=== PATIENT | female | born 1995 | race Caucasian/White ===

== ENCOUNTER → 2020-12-24 | Outpatient (REF) | payer OTHER ==
[2020-12-25 03:42] LABS: RSV AMPLIFICATION NEGATIVE (NEGATIVE)
== END ==
LOC: M LAB REF 17:00
PROVIDERS: ATTEND Specialist
DX: Z03.818 Encounter for observation for suspected exposure to other biological agents ruled out (principal)

== ENCOUNTER → 2021-01-20 | Outpatient (REF) | payer OTHER ==
[2021-01-20 10:48] LABS: RSV AMPLIFICATION NEGATIVE (NEGATIVE)
== END ==
LOC: M LAB REF 09:27
PROVIDERS: ATTEND Pediatrics
DX: J06.9 Acute upper respiratory infection, unspecified (principal)

== ENCOUNTER → 2021-01-27 | Outpatient (REF) | payer OTHER ==
[2021-01-27 13:30] LABS: APPEARANCE, URINE MANUAL CLOUDY (CLEAR)
[2021-01-27 13:31] LABS: BILIRUBIN, URINE MANUAL NEGATIVE (NEGATIVE); COLOR, URINE MANUAL RED (YELLOW); GLUCOSE, URINE (UA) MANUAL NEGATIVE (NEGATIVE); KETONE, URINE MANUAL NEGATIVE (NEGATIVE); NITRITE, URINE MANUAL NEGATIVE (NEGATIVE); UROBILINOGEN, URINE MANUAL NORMAL (NORMAL)
[2021-01-27 13:32] LABS: BLOOD URINE MANUAL POSITIVE (NEGATIVE); LEUKOCYTE ESTERASE, URINE MAN TRACE (NEGATIVE)
[2021-01-27 13:34] LABS: RBC, URINE TNTC /hpf (0-3)
[2021-01-27 13:35] LABS: BACTERIA, URINE M; HYALINE CAST, URINE NONE SEEN /lpf (0-1); SQUAMOUS EPITHELIAL CELL URINE MOD AMOUNT /hpf (SMALL AMT)
== END ==
LOC: M LAB REF 12:51
PROVIDERS: ATTEND Pediatrics
DX: N39.0 Urinary tract infection, site not specified (principal)

== ENCOUNTER → 2023-06-04 | Outpatient (REF) | payer OTHER, MEDICAID | LOC: M SFHCWAGY 09:41 | PROVIDERS: ATTEND Obstetrics & Gynecology | DX: Z53.9 Procedure and treatment not carried out, unspecified reason (principal) ==

== ENCOUNTER → 2023-07-06 | Outpatient (CLI) | payer OTHER | LOC: M WHC 09:32 | PROVIDERS: ATTEND Obstetrics & Gynecology | DX: Z34.92 Encounter for supervision of normal pregnancy, unspecified, second trimester (principal) ==

== ENCOUNTER 2023-08-18 20:22 | Outpatient (CLI) | payer MEDICAID ==
[~2023-08-18 20:22] MED LIST: AMOX500C PO; ASPI81CH48; CEPH500C PO; CYCL-707 PO; METO5TAB2; PRED20TA PO; PRENTAB40 PO; REGL10TA6 PO
[2023-08-18] MEDS ORDERED: HOME MED LIST COMPLETE! XX SCH (21:40)
[2023-08-18] MEDS: LR 1,000 ML IV ONE (21:45)
== END 2023-08-18 22:55 | disposition home or self-care (01) ==
LOC: M LDO 20:22
PROVIDERS: ATTEND Obstetrics & Gynecology
DX: O26.892 Other specified pregnancy related conditions, second trimester (principal); R25.2 Cramp and spasm; R10.2 Pelvic and perineal pain; Z3A.26 26 weeks gestation of pregnancy
CPT/HCPCS: 59025; 81001; 87088; G0463

== ENCOUNTER → 2023-09-06 | Outpatient (CLI) | payer OTHER ==
[2023-09-06 13:35] LABS: HEMATOCRIT 36.9 % (36.0-47.0); MEAN CORPUSCULAR HEMOGLOBIN 30.5 pg (27.0-33.0); MEAN CORPUSCULAR HGB CONC 32.5 g/dl (32.0-36.5); MEAN CORPUSCULAR VOLUME 93.7 fl (80.0-96.0); PLATELET COUNT, AUTOMATED 272 10^3/uL (150-450); RED BLOOD COUNT 3.94 10^6/uL (4.00-5.40); WHITE BLOOD COUNT 10.1 10^3/uL (4.0-10.0)
[2023-09-06 14:58] LABS: GC DNA AMPLIFICATION NEGATIVE (NEGATIVE)
== END ==
LOC: M PLALAB 09:58
PROVIDERS: ATTEND Advanced Practice Midwife
DX: Z34.92 Encounter for supervision of normal pregnancy, unspecified, second trimester (principal)

== ENCOUNTER → 2023-10-26 | Outpatient (REF) | payer OTHER ==
[~2023-10-26] MED LIST changes: +FIOR1CAP PO
== END ==
LOC: M SFHCWAGY 12:24
PROVIDERS: ATTEND Advanced Practice Midwife
DX: Z36.85 Encounter for antenatal screening for Streptococcus B (principal)

== ENCOUNTER 2023-10-27 22:27 | Outpatient (CLI) | payer OTHER ==
[~2023-10-27] VITALS: Ht 157.5 cm; Wt 73.9 kg
[~2023-10-27 22:27] MED LIST changes: -FIOR1CAP PO
[2023-10-27] MEDS: diphenhydrAMINE 25MG CAP PO ONE (23:25)
[2023-10-27] MEDS: METOCLOPRAMIDE 10MG TAB PO ONE (23:25)
[2023-10-27 23:38] LABS: TOTAL PROTEIN,RANDOM URINE 10.1 MG/DL (0.0-14.0)
[2023-10-27 23:43] LABS: CREATININE,RANDOM URINE 61.4 MG/DL
[2023-10-28 00:40] VITALS: BP 120/65
[2023-10-28] MEDS: FIORICET TAB PO ONE (00:41)
[2023-10-28] MEDS ORDERED: FIOR1CAP PO (02:55)
== END 2023-10-28 02:52 | disposition home or self-care (01) ==
LOC: M LDO 22:27
PROVIDERS: ATTEND Obstetrics & Gynecology
DX: O26.893 Other specified pregnancy related conditions, third trimester (principal); R51.9 Headache, unspecified; Z87.59 Personal history of other complications of pregnancy, childbirth and the puerperium; Z3A.36 36 weeks gestation of pregnancy
CPT/HCPCS: 59025; 82570; 84156; G0463

== ENCOUNTER 2023-11-18 20:17 | Inpatient (IN) | payer OTHER ==
[~2023-11-18] VITALS: Ht 157.5 cm; Wt 76.0 kg
[~2023-11-18 20:17] MED LIST changes: -ASPI81CH48; +ASPI81CH48 PO; +FIOR1CAP PO; +TUMS500C PO
[2023-11-18 20:34] VITALS: BP 119/65
[2023-11-18] MEDS ORDERED: HOME MED LIST COMPLETE! XX SCH (20:35)
[2023-11-18 23:45] VITALS: BP 119/57
[2023-11-19] VITALS (62 sets, daily range): BP systolic 89–150; BP diastolic 41–98; TEMP 98.5; O2SAT 96–98
[2023-11-19] MEDS ORDERED: METHYLERGONOVINE MALEATE 0.2MG/ML 1ML VIAL IM PRN (00:50)
[2023-11-19] MEDS ORDERED: LIDOCAINE 1% MDV 20ML VIAL INFIL PRN (00:50)
[2023-11-19] MEDS ORDERED: TRANEXAMIC ACID INJection 1,000 MG in NS 100 ML IV PRN (00:50)
[2023-11-19] MEDS ORDERED: OXYTOCIN DRIP 30 UNITS in IV 1 EA IV PRN (00:50)
[2023-11-19] MEDS: miSOPROStol 50MCG 1/2 TABLET PO SCH (01:05)
[2023-11-19 01:13] LABS: HEMATOCRIT 35.7 % (36.0-47.0); MEAN CORPUSCULAR HEMOGLOBIN 29.9 pg (27.0-33.0); MEAN CORPUSCULAR HGB CONC 33.6 g/dl (32.0-36.5); MEAN CORPUSCULAR VOLUME 88.8 fl (80.0-96.0); PLATELET COUNT, AUTOMATED 273 10^3/uL (150-450); RED BLOOD COUNT 4.02 10^6/uL (4.00-5.40); WHITE BLOOD COUNT 12.1 10^3/uL (4.0-10.0)
[2023-11-19 02:12] LABS: HEPATITIS C VIRUS ABY INDEX 0.03 INDEX (<0.8)
[2023-11-19] MEDS ORDERED: FENTANYL 2MCG/ML ROPIVACAINE 0.2% IN 0.9% NACL 100ML IVBAG As Ordered ONE (07:19)
[2023-11-19] MEDS ORDERED: diphenhydrAMINE 50MG/ML VIAL IV PRN ×2 (07:20→18:50)
[2023-11-19] MEDS ORDERED: ONDANSETRON 4MG 2ML VIAL IV PRN ×2 (07:20→18:35)
[2023-11-19] MEDS ORDERED: NALOXONE INJ 0.4MG/1ML VIAL IV PRN ×3 (07:20→18:50)
[2023-11-19] MEDS ORDERED: LR 500 ML IV PRN (07:20)
[2023-11-19] MEDS ORDERED: EPIDURAL/PCA KEYS XX PRN ×2 (07:20→12:30)
[2023-11-19] MEDS: LR 1,000 ML IV ONE (07:27)
[2023-11-19] MEDS: LR 1,000 ML IV SCH ×2 (07:27→18:35)
[2023-11-19] MEDS: FENTANYL/ROPIVACAINE/NACL BAG 100 ML EPIDURAL SCH (07:49)
[2023-11-19] MEDS: ePHEDrine SULFATE 25 MG/5 ML(5MG/ML) SYRINGE IVP PRN ×2 (08:24→12:32)
[2023-11-19] MEDS: FAMOTIDINE 20 MG TAB PO ONE (11:13)
[2023-11-19] MEDS: OXYTOCIN DRIP 30 UNITS in IV 1 EA IV SCH ×2 (13:08→18:56)
[2023-11-19] MEDS ORDERED: MORPHINE PRES-FREE INJ 10 MG/10 ML VIAL As Ordered ONE (17:25)
[2023-11-19] MEDS: ceFAZolin SOD 2 GM in IV 1 EA IV ONE (17:26)
[2023-11-19] MEDS: AZITHROMYCIN INJ 500 MG, VIAL MATE ADAPTER 1 EACH in NS 250 ML IV ONE (17:26)
[2023-11-19] MEDS: BICITRA 30ML SOLN UDC PO ONE (17:26)
[2023-11-19] MEDS ORDERED: OXYTOCIN 30UNITS IN 0.9% NaCl 500ML IV BAG As Ordered ONE (17:56)
[2023-11-19] MEDS ORDERED: ePHEDrine SULFATE 25 MG/5 ML(5MG/ML) SYRINGE As Ordered ONE (18:12)
[2023-11-19] MEDS ORDERED: KETOROLAC 60MG 2ML VIAL As Ordered ONE (18:13)
[2023-11-19] MEDS ORDERED: ONDANSETRON 4MG 2ML VIAL As Ordered ONE (18:13)
[2023-11-19] MEDS ORDERED: PHENYLephrine 500MCG 5ML (100MCG/ML) SYRINGE As Ordered ONE (18:13)
[2023-11-19 18:26] LABS: CORD GAS ABE A -1.5; CORD GAS HCO3 A 26.8 MMOL/L; CORD GAS O2 SAT A 16.6 %; CORD GAS PCO2 A 58.4 mmHg; CORD GAS PH A 7.279 UNITS; CORD GAS PO2 A 11.8 mmHg; CORD GAS TCO2 A 28.6 MMOL/L
[2023-11-19 18:30] LABS: CORD GAS ABE V -4.4; CORD GAS HCO3 V 23.3 MMOL/L; CORD GAS O2 SAT V 62.6 %; CORD GAS PCO2 V 51.8 mmHg; CORD GAS PH V 7.271 UNITS; CORD GAS PO2 V 28.5 mmHg; CORD GAS SBC V 19.9 MMOL/L; CORD GAS TCO2 V 24.9 MMOL/L
[2023-11-19] MEDS ORDERED: CALCIUM CARBONATE 500 MG CHEW U/D PO PRN (18:35)
[2023-11-19] MEDS ORDERED: ANUSOL HC CREAM 30GM TOP PRN (18:35)
[2023-11-19] MEDS ORDERED: RHO(D) IMMUNE GLOBULIN/MALTOSE 500MCG(2500IU)/2.2ML VIAL (WINRHO) IM SCH (18:35)
[2023-11-19] MEDS ORDERED: MORPHINE 4 MG/ML 1ML VIAL IV PRN (18:35)
[2023-11-19] MEDS: SLF 3 ML SYR IV SCH (18:50)
[2023-11-19] MEDS ORDERED: **NOTE PATIENT COMMENT** MISC XX SCH (18:50)
[2023-11-19] MEDS ORDERED: METOCLOPRAMIDE INJ 10MG/2ML VIAL IV PRN (18:50)
[2023-11-19] MEDS: PERCOCET 5MG/325MG TAB PO PRN (20:44)
[2023-11-19] MEDS: DOCUSATE SODIUM 100MG CAPSULE PO SCH (21:57)
[2023-11-19] MEDS: KETOROLAC 30 MG/ML 1ML VIAL IV SCH (23:55)
[2023-11-20] VITALS (7 sets, daily range): BP systolic 104–137; BP diastolic 50–77; O2SAT 95–98
[2023-11-20] MEDS: SIMETHICONE 80MG CHEW TAB PO PRN (04:13)
[2023-11-20 07:53] LABS: HEMATOCRIT 31.3 % (36.0-47.0); HEMOGLOBIN 10.3 g/dl (12.0-15.5); MEAN CORPUSCULAR HEMOGLOBIN 29.6 pg (27.0-33.0); MEAN CORPUSCULAR HGB CONC 32.9 g/dl (32.0-36.5); MEAN CORPUSCULAR VOLUME 89.9 fl (80.0-96.0); PLATELET COUNT, AUTOMATED 250 10^3/uL (150-450); RED BLOOD COUNT 3.48 10^6/uL (4.00-5.40); WHITE BLOOD COUNT 17.6 10^3/uL (4.0-10.0)
[2023-11-20] MEDS: PRENATAL VITAMINS CHEWABLE TABLET PO SCH (09:59)
[2023-11-20] MEDS: IBUPROFEN 800 MG TAB PO SCH (20:57)
[2023-11-21] MEDS: PERCOCET 5MG/325MG TAB PO PRN (01:01)
[2023-11-21 02:00] VITALS: BP 115/56; O2SAT 98
[2023-11-21 06:00] VITALS: BP 114/59; O2SAT 99
[2023-11-21] MEDS: MEASLES,MUMPS,RUBELLA VACCINE INJ (MMR-II) SC.IMMUN ONE (07:26)
[2023-11-21] MEDS ORDERED: PERCOCET PO (13:19)
[2023-11-21] MEDS ORDERED: COLA100C5 PO (13:19)
== END 2023-11-21 14:45 | disposition home or self-care (01) | DRG 540 ==
LOC: M LDO 20:17 → M LDI 11-19 00:19 → M OBS 11-20 00:52
PROVIDERS: ADMIT Obstetrics & Gynecology; ATTEND Obstetrics & Gynecology
PROC: 3E033VJ Introduction of Other Hormone into Peripheral Vein, Percutaneous Approach (ICD-10-PCS; 2023-11-19)
PROC: 10D00Z1 Extraction of Products of Conception, Low, Open Approach (ICD-10-PCS; principal; 2023-11-19 17:50)
DX: O76 Abnormality in fetal heart rate and rhythm complicating labor and delivery (principal); O64.0XX0 Obstructed labor due to incomplete rotation of fetal head, not applicable or unspecified; Z3A.39 39 weeks gestation of pregnancy; Z37.0 Single live birth

== ENCOUNTER → 2024-07-10 | Outpatient (REF) | payer MEDICAID, OTHER ==
[~2024-07-10] MED LIST changes: +COLA100C5 PO; +PERCOCET PO
== END ==
LOC: M SFHCWAGY 13:15
PROVIDERS: ATTEND Obstetrics & Gynecology
DX: Z12.4 Encounter for screening for malignant neoplasm of cervix (principal)

== ENCOUNTER → 2024-11-24 | Outpatient (REF) | payer OTHER ==
[2024-11-24 12:20] LABS: APPEARANCE, URINE CLOUDY (CLEAR); BACTERIA, URINE AUTO NEGATIVE (NEGATIVE); BILIRUBIN, URINE AUTO NEGATIVE (NEGATIVE); BLOOD, URINE BLOOD 3+ (NEGATIVE); GLUCOSE, URINE (UA) AUTO NEGATIVE (NEGATIVE); KETONE, URINE AUTO 1+ mg/dL (NEGATIVE); LEUKOCYTE ESTERASE, URINE AUTO 2+ (NEGATIVE); MUCUS, URINE SMALL (NEGATIVE); NITRITE, URINE AUTO NEGATIVE (NEGATIVE); PROTEIN, URINE AUTO 2+ mg/dL (NEGATIVE); RBC, URINE AUTO TNTC /HPF (0-3); SPECIFIC GRAVITY URINE AUTO 1.030 (1.002-1.035); SQUAMOUS EPITHELIAL CELL UR AU 7 /HPF (0-6); UROBILINOGEN, URINE AUTO 2.0 mg/dL (0.0-2.0); WBC, URINE AUTO TNTC /HPF (0-3)
== END ==
LOC: M LAB REF 11:59
PROVIDERS: ATTEND Physician Assistant Medical
DX: N39.0 Urinary tract infection, site not specified (principal)